=== PATIENT | female | born 1965 | race American Indian/Alaskan Native ===

== ENCOUNTER 2017-04-27 15:02 | Outpatient (CLI) | payer OTHER ==
--- NOTE | 2017-04-28 10:39 | Mammography Report ---
BONE DEXA:04/27/17 15:02:00 CLINICAL: Postmenopausal. COMPARISON: 07/18/15 TECHNIQUE: Two site bone DEXA performed on an Hologic scanner. FINDINGS: The average BMD of the lumbar spine L1-L4 is 0.836g/cm squared with a T-score of -2.9 and a Z-score of -1.8. This compares to 0.854g/cm squared on the last exam and represents a -2.0% change from the previous baseline. The average BMD of the left hip is 0.902g/cm squared with a T-score of -0.8 and a Z-score of -0.9. This compares to 0.923g/cm squared on the last exam and represents a -2.2% change from the previous baseline. The left femoral neck BMD is 0.722g/cm squared is a T score of -1.6 and a Z score of -0.9. IMPRESSION: 1. WHO classification: Osteoporosis with high fracture risk based on spine measurements. A modest decline in spine BMD compared to the prior exam. 2. WHO classification: Osteopenia with increased fracture risk based on left femoral neck measurements. A modest decline in left hip BMD compared to the prior exam. RECOMMENDATION: Clinical correlation and routine screening. DEFINITIONS: BMD = Bone Mineral Density T-score = BMD related to mean peak bone mass of young adult (mean expressed in Standard Deviation) Z-score = Age matched BMD expressed in SD World Health Organization (WHO) Diagnostic Criteria Normal T-score > -1 SD Osteopenia T-score between -1 and -2.4 SD Osteoporosis T-score -2.5 SD or below NOTE: BMD is not the only risk factor for fracture; also consider factors such as the patient's age, risk of falling, previous osteoporotic fracture, family history of osteoporotic fractures, current smoker, and low body weight. Z-scores are not calculated if >80 years of age.
== END 2017-04-27 15:03 | disposition home or self-care (01) ==
LOC: SPVWC 15:02
PROVIDERS: ATTEND Internal Medicine
DX: M81.8 Other osteoporosis without current pathological fracture (principal); M85.88 Other specified disorders of bone density and structure, other site; Z78.0 Asymptomatic menopausal state
CPT/HCPCS: 77080